=== PATIENT | male | born 1965 ===

== ENCOUNTER 2019-01-17 17:41 | Emergency (ER) | payer MEDICAID, OTHER ==
[~2019-01-17] VITALS: Ht 172.7 cm; Wt 87.5 kg
[2019-01-17 18:51] LABS: BASOPHILS # (AUTO) 0.1 X10'3 (0-0.2); BASOPHILS % (AUTO) 0.8 % (0-1); EOSINOPHILS # (AUTO) 0.9 X10'3 (0-0.9); EOSINOPHILS % (AUTO) 10.6 % (0-6); HEMOGLOBIN 15.7 g/dl (14.0-17.9); LYMPHOCYTES # (AUTO) 2.2 X10'3 (1.1-4.8); LYMPHOCYTES % (AUTO) 26.8 % (21-51); MEAN CORPUSCULAR HEMOGLOBIN 30.9 PG (27.0-31.0); MEAN CORPUSCULAR HGB CONC 34.8 g/dL (33.0-36.5); MEAN CORPUSCULAR VOLUME 88.6 FL (78-98); MEAN PLATELET VOLUME 8.7 FL (7.4-10.4); MONOCYTES # (AUTO) 0.5 X10'3 (0-0.9); MONOCYTES % (AUTO) 6.3 % (2-12); NEUTROPHILS # (AUTO) 4.5 X10'3 (1.8-7.7); NEUTROPHILS % (AUTO) 55.5 % (42-75); PLATELET COUNT 257 X10'3 (140-440); RED BLOOD COUNT 5.07 X10'6 (4.70-6.10); RED CELL DISTRIBUTION WIDTH 12.6 % (11.5-14.5); WHITE BLOOD COUNT 8.1 X10'3 (4.5-11.0)
[2019-01-17 19:05] LABS: ALANINE AMINOTRANSFERASE 40 U/L (12-78); ALBUMIN 3.5 G/DL (3.4-5.0); ALBUMIN/GLOBULIN RATIO 0.9 (1.1-1.5); ALKALINE PHOSPHATASE 91 IU/L (46-116); ANION GAP 8 (8-16); ASPARTATE AMINO TRANSFERASE 18 U/L (10-37); BILIRUBIN,TOTAL 0.4 MG/DL (0.1-1.0); BLOOD UREA NITROGEN 13 MG/DL (7-18); CALCIUM 8.6 MG/DL (8.5-10.1); CHLORIDE 107 MMOL/L (99-107); GLUCOSE 186 MG/DL (70-104); POTASSIUM 3.9 MMOL/L (3.5-5.1); SODIUM 142 MMOL/L (135-145); TOTAL CARBON DIOXIDE 26.6 MMOL/L (24-32); TOTAL PROTEIN 7.2 G/DL (6.4-8.2); eGFR 78 ML/MIN
[2019-01-17] MEDS ORDERED: methylPREDNISolone sod succ 125mg/2ml vial IV ONE (19:55)
[2019-01-17] MEDS ORDERED: ipratropium/albuterol 3ml nebule NEB ONE (19:55)
--- NOTE | 2019-01-17 19:55 | NUR ---
notified md jack of the PATIENT NEED FOR O2 AND A BREATHING TREATMENT .
--- NOTE | 2019-01-17 20:06 | NUR ---
RESP THERAPY HERE FOR [place]
[2019-01-17] MEDS ORDERED: BENZ-16 PO (20:27)
[2019-01-17] MEDS ORDERED: PRED20TA PO (20:27)
[2019-01-17] MEDS ORDERED: BUDE10.22 INH (20:27)
[2019-01-17] MEDS ORDERED: AZIT-63 PO (20:27)
[2019-01-17] MEDS ORDERED: ALBU8.5H8 INH (20:27)
[2019-01-17] MEDS ORDERED: albuterol 2.5 MG/3 ML nebule NEB ONE (20:30)
--- NOTE | 2019-01-17 20:40 | NUR ---
PT IS OFF OF O2 PER CARDIO TOLERATING ROOM AIR WITH SATS >93 %
[2019-01-17 21:12] VITALS: BP 159/78
== END 2019-01-17 20:55 | disposition home or self-care (01) ==
LOC: ER 17:42
DX: J45.901 Unspecified asthma with (acute) exacerbation (principal); Z79.2 Long term (current) use of antibiotics; Z79.899 Other long term (current) drug therapy
CPT/HCPCS: 36415; 71046; 80053; 83605; 83880; 85025; 87040; 93005; 94640; 94760; 96374; 99284; J2930